=== PATIENT | male | born 1990 | race African-American/Black ===

== ENCOUNTER 2022-03-04 18:57 | Emergency (ER) | payer MEDICAID, SELFPAY ==
--- NOTE | 2022-03-04 18:59 | ED_ITS ---
HPI - Overdose General Chief Complaint: ETOH/Substance Use <Alexander Colon MD - Last Filed: 03/04/22 23:20> Stated Complaint: POLYSUB OD,LOW BS PER EMS <Alexander Colon MD - Last Filed: 03/04/22 23:20> Time Seen by Provider: 03/04/22 19:59 <Alexander Colon MD - Last Filed: 03/04/22 23:20> Source: EMS <Alexander Colon MD - Last Filed: 03/04/22 23:20> Mode of arrival: EMS <Alexander Colon MD - Last Filed: 03/04/22 23:20> Limitations: altered mental status <Alexander Colon MD - Last Filed: 03/04/22 23:20> History of Present Illness HPI Narrative: Patient found in car unresponsive, heroine and needles in the car. Fire gave 8mg Narcan nasally, initial glucose 60, patient initially not breathing. <Alexander Colon MD - Last Filed: 03/04/22 23:20> MD complaint: accidental overdose <Alexander Colon MD - Last Filed: 03/04/22 23:20> Onset (ago): minute(s) <Alexander Colon MD - Last Filed: 03/04/22 23:20> Related Data Allergies/Adverse Reactions: Allergies Allergy/AdvReac Type Severity Reaction Status Date / Time No Known Allergies Allergy Verified 03/04/22 19:01 <Alexander Colon MD - Last Filed: 03/04/22 23:20> Review of Systems Review of Systems: Yes Unobtainable due to mental status <Alexander Colon MD - Last Filed: 03/04/22 23:20> [facility] Social History Social History: Social History Use of substances other than those prescribed or required for medical reasons: Yes Advance Directives: No Advance Directives Information Provided: No <Alexander Colon MD - Last Filed: 03/04/22 23:20> Physical Exam Vital Signs: Vital Signs: Last Vital Signs Temp 98.1 F 03/05/22 01:04 Pulse 95 03/05/22 01:04 Resp 14 03/05/22 01:04 BP 102/70 03/05/22 01:04 Pulse Ox 97 03/05/22 01:04 BMI result Body Mass Index 24.4 <Alexander Colon MD - Last Filed: 03/04/22 23:20> Vital Signs: Last Vital Signs Temp 98.1 F 03/05/22 01:04 Pulse 95 03/05/22 01:04 Resp 03/05/22 01:04 BP 102/70 03/05/22 01:04 Pulse Ox 97 03/05/22 01:04 BMI result Body Mass Index 24.4 <Bere Santiago DO - Last Filed: 03/05/22 02:48> Const: Other: shaking tremulous, unresponsive, moaning <Alexander Colon MD - Last Filed: 03/04/22 23:20> Nutritional Appearance: average body habitus <Alexander Colon MD - Last Filed: 03/04/22 23:20> Limitations: altered mental status <Alexander Colon MD - Last Filed: 03/04/22 23:20> HEENT: Head: Yes normal to inspection <Alexander Colon MD - Last Filed: 03/04/22 23:20> Ears: external ears normal <Alexander Colon MD - Last Filed: 03/04/22 23:20> General nose exam: Normal external nose present <Alexander Colon MD - Last Fi led: 03/04/22 23:20> Mouth: Normal oral and palatal mucosa present and oropharynx normal <Alexander Colon MD - Last Filed: 03/04/22 23:20> Throat: Yes posterior oropharynx normal <Alexander Colon MD - Last Filed: 03/04/22 23:20> Eyes: General: appearance normal, both eyes and all related structures <Alexander Colon MD - Last Filed: 03/04/22 23:20> Neck: Other: supple <Alexander Colon MD - Last Filed: 03/04/22 23:20> Neck: Yes normal visual inspection <Alexander Colon MD - Last Filed: 03/04/22 23:20> Chest: Chest palpation & inspection: normal inspection of the chest <Alexander Colon MD - Last Filed: 03/04/22 23:20> Resp: Auscultation: clear to auscultation bilaterally <Alexander Colon MD - Last Filed: 03/04/22 23:20> Cardio: Jugular venous distension: no JVD <Alexander Colon MD - Last Filed: 03/04/22 23:20> Rate: regular rate <Alexander Colon MD - Last Filed: 03/04/22 23:20> Rhythm: regular rhythm <Alexander Colon MD - Last Filed: 03/04/22 23:20> Heart sounds: S1 normal heart sound present and S2 normal heart sound present <Alexander Colon MD - Last Filed: 03/04/22 23:20> GI: Inspection: Yes normal to inspection <Alexander Colon MD - Last Filed: 03/04/22 23:20> Palpation (GI): Soft to palpation, nontender and No hepatosplenomegaly present <Alexander Colon MD - Last Filed: 03/04/22 23:20> Auscultation: normal bowel sounds <Alexander Colon MD - Last Filed: 03/04/22 23:20> : General: Yes no CVA tenderness <Alexander Colon MD - Last Filed: 03/04/22 23:20> Back/Spine/Pelvis: Back: no CVA tenderness <Alexander Colon MD - Last Filed: 03/04/22 23:20> Skin: General skin exam: no rashes or lesions noted <Alexander Colon MD - Last Filed: 03/04/22 23:20> Neuro: Other: movement all extremities <Alexander Colno MD - Last Filed: 03/04/22 23:20> Extrem: General: Yes normal to inspection <Alexander Colon MD - Last Filed: 03/04/22 23:20> Psych: Appearance: grossly normal <Alexander Colon MD - Last Filed: 03/04/22 23:20> Course Course Course Narrative: notified by RN that patient wants to leave but his WBC is elevated he is alert and oriented x 3, GCS 15, he refuses to stay in ED. He did vomit several times, repeat chemistry and LFTs normal. He states he is leaving. Does not want SUDE evaluation at this time. Patient is AMA at this time given elevated WBC count. eloped prior to DC instructions and AMA paperwork <Bere Santiago DO - Last Filed: 03/05/22 02:48> Reevaluation(s) Reevaluation #1: vomited some coffee grounds, no bright red blood <Alexander Colon MD - Last Filed: 03/04/22 23:20> Time: 21:03 <Alexander Colon MD - Last Filed: 03/04/22 23:20> Reevaluation #2: Patient placed in physician observation at 11:16pm The indication for observation is that the patient needs more time to see if his mental status returns to baseline. He has multiple drugs on board. At this time the patient is arousable but lethargic, well nourished, lungs clear, CV RRR, abd nontender, neuro he moves all extremities but is not mentating normally. <Alexander Colon MD - Last Filed: 03/04/22 23:20> Time: 23:20 <Alexander Colon MD - Last Filed: 03/04/22 23:20> MDM - Overdose Lab Data Result diagrams: : 03/05/22 01:27 03/05/22 01:27 <Alexander Colon MD - Last Filed: 03/04/22 23:20> Labs: Lab Results 03/04/22 03/04/22 03/04/22 Range/Units 19:16 19:17 19:17 WBC 25.1 H (4.8-10.8) X10*3/uL RBC 5.32 (4.60-5.80) X10*6/uL Hgb 15.6 (14.0-18.0) g/dl Hct 48.5 (42.0-52.0) % MCV 91.2 (80.0-98.0) fL MCH 29.3 (27.0-33.0) pg MCHC 32.2 (31.0-36.0) g/dl RDW 13.2 (11.0-16.0) % Plt Count 282 (160-400) X10*3/uL MPV 9.0 L (9.4-12.4) fL Immature Gran % (Auto) 1.2 H (0.0-0.4) % Neut % (Auto) 87.2 H (45-73) % Lymph % (Auto) 6.2 L (20-40) % [place] % (Auto) 5.1 (2-11) % Eos % (Auto) 0.0 (0-4) % Baso % (Auto) 0.3 (0-2) % Lymph # (Auto) 1.6 (1.2-4.9) X10*3/uL [place] # (Auto) 1.3 H (0.1-1.2) X10*3/uL Eos # (Auto) 0.0 (0.0-0.4) X10*3/uL Baso # (Auto) 0.1 (0.0-0.2) X10*3/uL Abs Immat Gran (auto) 0.31 H (0.00-0.03) X10*3/uL Absolute Neuts (auto) 21.9 H (2.0-8.3) x10*3/uL Absolute Nucleated RBC 0.000 (0.0-0.012) X10*3/uL Nucleated RBC % (auto) 0.0 (0.0-0.2) /100WBC Smear Tech's Comments Sodium 141 (135-145) mmol/L Potassium 4.8 (3.3-5.1) mmol/L Chloride 102 (96-108) mmol/L Carbon Dioxide 23 (22-29) mmol/L Anion Gap 21 H (12-20) BUN 12 (9-16) mg/dL Creatinine 1.45 H (0.5-1.4) mg/dL Estim Creat Clear Calc 81.7 Estimated GFR 57 POC Glucose (60-115) mg/dL Random Glucose 157 H (60-115) mg/dL Calcium 9.4 (8.4-10.2) mg/dL Total Bilirubin 0.8 (0.0-1.0) mg/dL Direct Bilirubin (0.0-0.5) mg/dL AST 44 H (5-37) U/L ALT 44 H (0-40) U/L Alkaline Phosphatase 65 (39-117) U/L Total Protein 7.5 (6.5-8.0) g/dL Albumin 4.3 (3.5-5.0) g/dL Salicylates < 5.0 L (15-30) mg/dL Urine Opiates Screen (Not Detect) Urine Fentanyl Screen (Not Detect) Acetaminophen < 1 (<30) mcg/mL Ur Barbiturates Screen (Not Detect) Ur Phencyclidine Scrn (Not Detect) Ur Amphetamines Screen (Not Detect) U Benzodiazepines Scrn (Not Detect) Urine Cocaine Screen (Not Detect) U Marijuana (THC) Screen (Not Detect) Ethyl Alcohol < 10 mg/dL 03/04/22 03/04/22 03/05/22 Range/Units 19:17 20:28 01:27 WBC 23.2 H (4.8-10.8) X10*3/uL RBC 5.40 (4.60-5.80) X10*6/uL Hgb 15.7 (14.0-18.0) g/dl Hct 47.2 (42.0-52.0) % MCV 87.4 (80.0-98.0) fL MCH 29.1 (27.0-33.0) pg MCHC 33.3 (31.0-36.0) g/dl RDW 13.2 (11.0-16.0) % Plt Count 247 (160-400) X10*3/uL MPV 9.1 L (9.4-12.4) fL Immature Gran % (Auto) 0.6 H (0.0-0.4) % Neut % (Auto) 86.9 H (45-73) % Lymph % (Auto) 5.5 L (20-40) % [place] % (Auto) 6.9 (2-11) % Eos % (Auto) 0.0 (0-4) % Baso % (Auto) 0.1 (0-2) % Lymph # (Auto) 1.3 (1.2-4.9) X10*3/uL [place] # (Auto) 1.6 H (0.1-1.2) X10*3/uL Eos # (Auto) 0.0 (0.0-0.4) X10*3/uL Baso # (Auto) 0.0 (0.0-0.2) X10*3/uL Abs Immat Gran (auto) 0.14 H (0.00-0.03) X10*3/uL Absolute Neuts (auto) 20.2 H (2.0-8.3) x10*3/uL Absolute Nucleated RBC 0.000 (0.0-0.012) X10*3/uL Nucleated RBC % (auto) 0.0 (0.0-0.2) /100WBC Smear Tech's Comments VERIFIED Sodium (135-145) mmol/L Potassium (3.3-5.1) mmol/L Chloride (96-108) mmol/L Carbon Dioxide (22-29) mmol/L Anion Gap (12-20) BUN (9-16) mg/dL Creatinine (0.5-1.4) mg/dL Estim Creat Clear Calc Estimated GFR POC Glucose 108 (60-115) mg/dL Random Glucose (60-115) mg/dL Calcium (8.4-10.2) mg/dL Total Bilirubin (0.0-1.0) mg/dL Direct Bilirubin (0.0-0.5) mg/dL AST (5-37) U/L ALT (0-40) U/L Alkaline Phosphatase (39-117) U/L Total Protein (6.5-8.0) g/dL Albumin (3.5-5.0) g/dL Salicylates (15-30) mg/dL Urine Opiates Screen POSITIVE H (Not Detect) Urine Fentanyl Screen POSITIVE H (Not Detect) Acetaminophen (<30) mcg/mL Ur Barbiturates Screen Not Detected (Not Detect) Ur Phencyclidine Scrn Not Detected (Not Detect) Ur Amphetamines Screen Not Detected (Not Detect) U Benzodiazepines Scrn Not Detected (Not Detect) Urine Cocaine Screen POSITIVE H (Not Detect) U Marijuana (THC) Screen POSITIVE H (Not Detect) Ethyl Alcohol mg/dL 03/05/22 Range/Units 01:27 WBC (4.8-10.8) X10*3/uL RBC (4.60-5.80) X10*6/uL Hgb (14.0-18.0) g/dl Hct (42.0-52.0) % MCV (80.0-98.0) fL MCH (27.0-33.0) pg MCHC (31.0-36.0) g/dl RDW (11.0-16.0) % Plt Count (160-400) X10*3/uL MPV (9.4-12.4) fL Immature Gran % (Auto) (0.0-0.4) % Neut % (Auto) (45-73) % Lymph % (Auto) (20-40) % [place] % (Auto) (2-11) % Eos % (Auto) (0-4) % Baso % (Auto) (0-2) % Lymph # (Auto) (1.2-4.9) X10*3/uL [place] # (Auto) (0.1-1.2) X10*3/uL Eos # (Auto) (0.0-0.4) X10*3/uL Baso # (Auto) (0.0-0.2) X10*3/uL Abs Immat Gran (auto) (0.00-0.03) X10*3/uL Absolute Neuts (auto) (2.0-8.3) x10*3/uL Absolute Nucleated RBC (0.0-0.012) X10*3/uL Nucleated RBC % (auto) (0.0-0.2) /100WBC Smear Tech's Comments Sodium 141 (135-145) mmol/L Potassium 4.9 (3.3-5.1) mmol/L Chloride 103 (96-108) mmol/L Carbon Dioxide 26 (22-29) mmol/L Anion Gap 17 (12-20) BUN 15 (9-16) mg/dL Creatinine 1.14 (0.5-1.4) mg/dL Estim Creat Clear Calc 103.9 Estimated GFR > 60 POC Glucose (60-115) mg/dL Random Glucose 115 (60-115) mg/dL Calcium 9.5 (8.4-10.2) mg/dL Total Bilirubin 0.9 (0.0-1.0) mg/dL Direct Bilirubin 0.4 (0.0-0.5) mg/dL AST 53 H (5-37) U/L ALT 49 H (0-40) U/L Alkaline Phosphatase 57 (39-117) U/L Total Protein 7.7 (6.5-8.0) g/dL Albumin 4.5 (3.5-5.0) g/dL Salicylates (15-30) mg/dL Urine Opiates Screen (Not Detect) Urine Fentanyl Screen (Not Detect) Acetaminophen (<30) mcg/mL Ur Barbiturates Screen (Not Detect) Ur Phencyclidine Scrn (Not Detect) Ur Amphetamines Screen (Not Detect) U Benzodiazepines Scrn (Not Detect) Urine Cocaine Screen (Not Detect) U Marijuana (THC) Screen (Not Detect) Ethyl Alcohol mg/dL <Alexander Colon MD - Last Filed: 03/04/22 23:20> Lab Results 03/04/22 03/04/22 03/04/22 Range/Units 19:16 19:17 19:17 WBC 25.1 H (4.8-10.8) X10*3/uL RBC 5.32 (4.60-5.80) X10*6/uL Hgb 15.6 (14.0-18.0) g/dl Hct 48.5 (42.0-52.0) % MCV 91.2 (80.0-98.0) fL MCH 29.3 (27.0-33.0) pg MCHC 32.2 (31.0-36.0) g/dl RDW 13.2 (11.0-16.0) % Plt Count 282 (160-400) X10*3/uL MPV 9.0 L (9.4-12.4) fL Immature Gran % (Auto) 1.2 H (0.0-0.4) % Neut % (Auto) 87.2 H (45-73) % Lymph % (Auto) 6.2 L (20-40) % [place] % (Auto) 5.1 (2-11) % Eos % (Auto) 0.0 (0-4) % Baso % (Auto) 0.3 (0-2) % Lymph # (Auto) 1.6 (1.2-4.9) X10*3/uL [place] # (Auto) 1.3 H (0.1-1.2) X10*3/uL Eos # (Auto) 0.0 (0.0-0.4) X10*3/uL Baso # (Auto) 0.1 (0.0-0.2) X10*3/uL Abs Immat Gran (auto) 0.31 H (0.00-0.03) X10*3/uL Absolute Neuts (auto) 21.9 H (2.0-8.3) x10*3/uL Absolute Nucleated RBC 0.000 (0.0-0.012) X10*3/uL Nucleated RBC % (auto) 0.0 (0.0-0.2) /100WBC Smear Tech's Comments Sodium 141 (135-145) mmol/L Potassium 4.8 (3.3-5.1) mmol/L Chloride 102 (96-108) mmol/L Carbon Dioxide 23 (22-29) mmol/L Anion Gap 21 H (12-20) BUN 12 (9-16) mg/dL Creatinine 1.45 H (0.5-1.4) mg/dL Estim Creat Clear Calc 81.7 Estimated GFR 57 POC Glucose (60-115) mg/dL Random Glucose 157 H (60-115) mg/dL Calcium 9.4 (8.4-10.2) mg/dL Total Bilirubin 0.8 (0.0-1.0) mg/dL Direct Bilirubin (0.0-0.5) mg/dL AST 44 H (5-37) U/L ALT 44 H (0-40) U/L Alkaline Phosphatase 65 (39-117) U/L Total Protein 7.5 (6.5-8.0) g/dL Albumin 4.3 (3.5-5.0) g/dL Salicylates < 5.0 L (15-30) mg/dL Urine Opiates Screen (Not Detect) Urine Fentanyl Screen (Not Detect) Acetaminophen < 1 (<30) mcg/mL Ur Barbiturates Screen (Not Detect) Ur Phencyclidine Scrn (Not Detect) Ur Amphetamines Screen (Not Detect) U Benzodiazepines Scrn (Not Detect) Urine Cocaine Screen (Not Detect) U Marijuana (THC) Screen (Not Detect) Ethyl Alcohol < 10 mg/dL 03/04/22 03/04/22 03/05/22 Range/Units 19:17 20:28 01:27 WBC 23.2 H (4.8-10.8) X10*3/uL RBC 5.40 (4.60-5.80) X10*6/uL Hgb 15.7 (14.0-18.0) g/dl Hct 47.2 (42.0-52.0) % MCV 87.4 (80.0-98.0) fL MCH 29.1 (27.0-33.0) pg MCHC 33.3 (31.0-36.0) g/dl RDW 13.2 (11.0-16.0) % Plt Count 247 (160-400) X10*3/uL MPV 9.1 L (9.4-12.4) fL Immature Gran % (Auto) 0.6 H (0.0-0.4) % Neut % (Auto) 86.9 H (45-73) % Lymph % (Auto) 5.5 L (20-40) % [place] % (Auto) 6.9 (2-11) % Eos % (Auto) 0.0 (0-4) % Baso % (Auto) 0.1 (0-2) % Lymph # (Auto) 1.3 (1.2-4.9) X10*3/uL [place] # (Auto) 1.6 H (0.1-1.2) X10*3/uL Eos # (Auto) 0.0 (0.0-0.4) X10*3/uL Baso # (Auto) 0.0 (0.0-0.2) X10*3/uL Abs Immat Gran (auto) 0.14 H (0.00-0.03) X10*3/uL Absolute Neuts (auto) 20.2 H (2.0-8.3) x10*3/uL Absolute Nucleated RBC 0.000 (0.0-0.012) X10*3/uL Nucleated RBC % (auto) 0.0 (0.0-0.2) /100WBC Smear Tech's Comments VERIFIED Sodium (135-145) mmol/L Potassium (3.3-5.1) mmol/L Chloride (96-108) mmol/L Carbon Dioxide (22-29) mmol/L Anion Gap (12-20) BUN (9-16) mg/dL Creatinine (0.5-1.4) mg/dL Estim Creat Clear Calc Estimated GFR POC Glucose 108 (60-115) mg/dL Random Glucose (60-115) mg/dL Calcium (8.4-10.2) mg/dL Total Bilirubin (0.0-1.0) mg/dL Direct Bilirubin (0.0-0.5) mg/dL AST (5-37) U/L ALT (0-40) U/L Alkaline Phosphatase (39-117) U/L Total Protein (6.5-8.0) g/dL Albumin (3.5-5.0) g/dL Salicylates (15-30) mg/dL Urine Opiates Screen POSITIVE H (Not Detect) Urine Fentanyl Screen POSITIVE H (Not Detect) Acetaminophen (<30) mcg/mL Ur Barbiturates Screen Not Detected (Not Detect) Ur Phencyclidine Scrn Not Detected (Not Detect) Ur Amphetamines Screen Not Detected (Not Detect) U Benzodiazepines Scrn Not Detected (Not Detect) Urine Cocaine Screen POSITIVE H (Not Detect) U Marijuana (THC) Screen POSITIVE H (Not Detect) Ethyl Alcohol mg/dL 03/05/22 Range/Units 01:27 WBC (4.8-10.8) X10*3/uL RBC (4.60-5.80) X10*6/uL Hgb (14.0-18.0) g/dl Hct (42.0-52.0) % MCV (80.0-98.0) fL MCH (27.0-33.0) pg MCHC (31.0-36.0) g/dl RDW (11.0-16.0) % Plt Count (160-400) X10*3/uL MPV (9.4-12.4) fL Immature Gran % (Auto) (0.0-0.4) % Neut % (Auto) (45-73) % Lymph % (Auto) (20-40) % [place] % (Auto) (2-11) % Eos % (Auto) (0-4) % Baso % (Auto) (0-2) % Lymph # (Auto) (1.2-4.9) X10*3/uL [place] # (Auto) (0.1-1.2) X10*3/uL Eos # (Auto) (0.0-0.4) X10*3/uL Baso # (Auto) (0.0-0.2) X10*3/uL Abs Immat Gran (auto) (0.00-0.03) X10*3/uL Absolute Neuts (auto) (2.0-8.3) x10*3/uL Absolute Nucleated RBC (0.0-0.012) X10*3/uL Nucleated RBC % (auto) (0.0-0.2) /100WBC Smear Tech's Comments Sodium 141 (135-145) mmol/L Potassium 4.9 (3.3-5.1) mmol/L Chloride 103 (96-108) mmol/L Carbon Dioxide 26 (22-29) mmol/L Anion Gap 17 (12-20) BUN 15 (9-16) mg/dL Creatinine 1.14 (0.5-1.4) mg/dL Estim Creat Clear Calc 103.9 Estimated GFR > 60 POC Glucose (60-115) mg/dL Random Glucose 115 (60-115) mg/dL Calcium 9.5 (8.4-10.2) mg/dL Total Bilirubin 0.9 (0.0-1.0) mg/dL Direct Bilirubin 0.4 (0.0-0.5) mg/dL AST 53 H (5-37) U/L ALT 49 H (0-40) U/L Alkaline Phosphatase 57 (39-117) U/L Total Protein 7.7 (6.5-8.0) g/dL Albumin 4.5 (3.5-5.0) g/dL Salicylates (15-30) mg/dL Urine Opiates Screen (Not Detect) Urine Fentanyl Screen (Not Detect) Acetaminophen (<30) mcg/mL Ur Barbiturates Screen (Not Detect) Ur Phencyclidine Scrn (Not Detect) Ur Amphetamines Screen (Not Detect) U Benzodiazepines Scrn (Not Detect) Urine Cocaine Screen (Not Detect) U Marijuana (THC) Screen (Not Detect) Ethyl Alcohol mg/dL <Bere Santiago DO - Last Filed: 03/05/22 02:48> Discharge Plan Discharge Clinical Impression: Polysubstance abuse, Overdose, Leukocytosis <Alexander Colon MD - Last Filed: 03/04/22 23:20> Patient Disposition: Left Against Medical Advice <Alexander Colon MD - Last Filed: 03/04/22 23:20> Instructions: Adult Overdose (ED), Polysubstance Abuse (ED), Leukocytosis (ED) <Alexander Colon MD - Last Filed: 03/04/22 23:20>
[2022-03-04 19:03] VITALS: BP 112/70; BP 135/71; PULSE 120; PULSE 130; RESP 30; TEMP 36.6; O2SAT 100; BMI 24.4
--- NOTE | 2022-03-04 19:22 | PC.NURSE ---
Patient opening eyes, pulling off tele leads and PIV. NRBR in place, O2 remains at 100%. and heart rate 123 on monitor. MD at bedside.
[2022-03-04 19:29] LABS: MANUAL DIFF FLAG NO
[2022-03-04 19:32] LABS: Basophils Absolute Auto 0.1 X10*3/uL (0.0-0.2); Basophils Percent Auto 0.3 % (0-2); Hematocrit 48.5 % (42.0-52.0); Hemoglobin 15.6 g/dl (14.0-18.0); Imm Gran Abs Auto 0.31 X10*3/uL (0.00-0.03); Imm Gran Pct Auto 1.2 % (0.0-0.4); Lymphocytes Absolute Auto 1.6 X10*3/uL (1.2-4.9); Lymphocytes Percent Auto 6.2 % (20-40); Mean Corpuscular HGB Conc 32.2 g/dl (31.0-36.0); Mean Corpuscular Hemoglobin 29.3 pg (27.0-33.0); Mean Corpuscular Volume 91.2 fL (80.0-98.0); Monocytes Absolute Auto 1.3 X10*3/uL (0.1-1.2); Monocytes Percent Auto 5.1 % (2-11); Neutrophils Absolute Auto 21.9 x10*3/uL (2.0-8.3); Neutrophils Percent Auto 87.2 % (45-73); Platelet Count 282 X10*3/uL (160-400); Red Blood Count 5.32 X10*6/uL (4.60-5.80); Red Cell Distribution Width 13.2 % (11.0-16.0); SCAN SMEAR FLAG 1; White Blood Count 25.1 X10*3/uL (4.8-10.8)
[2022-03-04 19:36] VITALS: BP 142/73; PULSE 132; RESP 19; O2SAT 97
[2022-03-04 19:45] LABS: Ethanol < 10 mg/dL
[2022-03-04 19:50] LABS: Acetaminophen LAB < 1 mcg/mL (<30); Alanine Aminotransferase 44 U/L (0-40); Albumin Level 4.3 g/dL (3.5-5.0); Alkaline Phosphatase 65 U/L (39-117); Anion Gap 21 (12-20); Aspartate Amino Transferase 44 U/L (5-37); Bilirubin Total 0.8 mg/dL (0.0-1.0); Blood Urea Nitrogen 12 mg/dL (9-16); Calcium 9.4 mg/dL (8.4-10.2); Carbon Dioxide 23 mmol/L (22-29); Chloride 102 mmol/L (96-108); Creatinine Clr Calc Pharmacy 81.7; Estimated Glomerular Filt Rate 57; Glucose Random 157 mg/dL (60-115); Potassium 4.8 mmol/L (3.3-5.1); Salicylate < 5.0 mg/dL (15-30); Sodium 141 mmol/L (135-145); Total Protein 7.5 g/dL (6.5-8.0)
[2022-03-04 19:55] LABS: Amphetamine Screen Urine Not Detected (Not Detect); Barbiturates, Urine Not Detected (Not Detect); Benzodiazepines Screen Urine Not Detected (Not Detect); Cannabinoid Screen Urine POSITIVE (Not Detect); Cocaine Screen Urine POSITIVE (Not Detect); Fentanyl, urine POSITIVE (Not Detect); Opiate Screen Urine POSITIVE (Not Detect); Phencyclidine Screen Urine Not Detected (Not Detect)
[2022-03-04 20:32] LABS: Glucose, Whole Blood 108 mg/dL (60-115)
--- NOTE | 2022-03-04 20:32 | MHC.RECOVSUP ---
Reason for consult: recovery support and engagement o Current location: ED #4 o Identified substance use concern: OPIOID - Overdose <del>-</del> <del>Withdrawal</del> <del>-</del> <del>Seeking</del> <del>ATS</del> <del>(detox)</del> <del>-</del> <del>Support</del> ? Intervention: <del>o</del> <del>ATS</del> <del>bed</del> <del>search</del> <del>started/completed/in</del> <del>process</del> <del>o</del> <del>MAT</del> <del>started</del> <del>or</del> <del>to</del> <del>be</del> <del>started</del> <del>o</del> <del>Community</del> <del>resources</del> <del>provided</del> <del>o</del> <del>Harm</del> <del>reduction</del> <del>discussion</del> ? Plan: <del>o</del> <del>Referral</del> <del>to</del> <del>[facility]</del> <del>o</del> <del>Bed</del> <del>search</del> <del>in</del> <del>progress</del> <del>to</del> <del>o</del> <del>Follow</del> <del>up</del> <del>tomorrow</del> <del>o</del> <del>Patient</del> <del>awaiting</del> <del>crisis</del> <del>evaluation</del> <del>o</del> <del>Patient</del> <del>to</del> <del>follow</del> <del>up</del> <del>with</del> <del>[facility]</del> <del>after</del> <del>discharge</del> ? Additional information: I attempted to engage with pt but he was not awake and could not remain alert. pt was brought into the ED because of an OPIOID overdose. I had to make the nurse aware that pt was sideways on his bed and needed assistance with getting back on his bed. I will wait and try to engage with him again within the next hour.
[2022-03-04 20:34] VITALS: BP 108/67; PULSE 105; RESP 20; TEMP 37; O2SAT 94
--- NOTE | 2022-03-04 21:30 | PC.NURSE ---
Patient awake, responds to name. Mother at bedside.
[2022-03-04 22:00] VITALS: BP 108/72; PULSE 105; RESP 18; O2SAT 97
[2022-03-05] VITALS: BP 119/48; PULSE 94; RESP 18; O2SAT 98
[2022-03-05 01:04] VITALS: BP 102/70; PULSE 95; RESP 14; TEMP 36.7; O2SAT 97
[2022-03-05 01:40] LABS: Basophils Percent Auto 0.1 % (0-2); Hematocrit 47.2 % (42.0-52.0); Hemoglobin 15.7 g/dl (14.0-18.0); Imm Gran Abs Auto 0.14 X10*3/uL (0.00-0.03); Imm Gran Pct Auto 0.6 % (0.0-0.4); Lymphocytes Absolute Auto 1.3 X10*3/uL (1.2-4.9); Lymphocytes Percent Auto 5.5 % (20-40); MANUAL DIFF FLAG SCAN; Mean Corpuscular HGB Conc 33.3 g/dl (31.0-36.0); Mean Corpuscular Hemoglobin 29.1 pg (27.0-33.0); Mean Corpuscular Volume 87.4 fL (80.0-98.0); Mean Platelet Volume 9.1 fL (9.4-12.4); Monocytes Absolute Auto 1.6 X10*3/uL (0.1-1.2); Monocytes Percent Auto 6.9 % (2-11); Neutrophils Absolute Auto 20.2 x10*3/uL (2.0-8.3); Neutrophils Percent Auto 86.9 % (45-73); Platelet Count 247 X10*3/uL (160-400); Red Cell Distribution Width 13.2 % (11.0-16.0); SCAN SMEAR FLAG 1; White Blood Count 23.2 X10*3/uL (4.8-10.8)
[2022-03-05 01:53] LABS: SLIDE REVIEW VERIFIED
[2022-03-05 01:57] LABS: Alanine Aminotransferase 49 U/L (0-40); Albumin Level 4.5 g/dL (3.5-5.0); Alkaline Phosphatase 57 U/L (39-117); Anion Gap 17 (12-20); Aspartate Amino Transferase 53 U/L (5-37); Bilirubin Direct 0.4 mg/dL (0.0-0.5); Bilirubin Total 0.9 mg/dL (0.0-1.0); Blood Urea Nitrogen 15 mg/dL (9-16); Calcium 9.5 mg/dL (8.4-10.2); Carbon Dioxide 26 mmol/L (22-29); Chloride 103 mmol/L (96-108); Creatinine Clr Calc Pharmacy 103.9; Estimated Glomerular Filt Rate > 60; Glucose Random 115 mg/dL (60-115); Potassium 4.9 mmol/L (3.3-5.1); Sodium 141 mmol/L (135-145); Total Protein 7.7 g/dL (6.5-8.0)
--- NOTE | 2022-03-05 02:45 | PC.NURSE ---
Pt Iv removed. pt told to please stay until discharge. Pt was told provider would be in shortly. pt refused and left. Provider is aware. pt was a&o, no sob or chest pain. pt was able to walk with a steady gait. Pt was able to respond to questions appropriately.
[2022-03-05 05:21] LABS: Glucose, Whole Blood 170 mg/dL (60-115)
== END 2022-03-05 02:53 | disposition left against medical advice (07) ==
PROVIDERS: Emergency Medicine; Emergency Provider Emergency Medicine
DX: T40.1X1A Poisoning by heroin, accidental (unintentional), initial encounter (principal); T40.5X1A Poisoning by cocaine, accidental (unintentional), initial encounter; T40.711A Poisoning by cannabis, accidental (unintentional), initial encounter; R40.4 Transient alteration of awareness; F19.10 Other psychoactive substance abuse, uncomplicated; Y92.810 Car as the place of occurrence of the external cause; D72.829 Elevated white blood cell count, unspecified
CPT/HCPCS: 36415; 80048; 80053; 80076; 80143; 80179; 80307; 82077; 82947; 85025; 99284

== ENCOUNTER 2022-04-17 19:53 | Emergency (ER) | payer SELFPAY ==
--- NOTE | ~2022-04-17 | XR_ITS ---
EXAMINATION: XR CHEST CLINICAL INFORMATION: Overdose COMPARISON: None TECHNIQUE: Frontal portable view of the chest was obtained. 9:05 PM FINDINGS: No significant abnormality is noted involving the heart, lungs, mediastinum, bony thorax or soft tissues. XR/XR chest 1V IMPRESSION: Unremarkable examination.
[2022-04-17 20:02] VITALS: BP 120/83; PULSE 69; PULSE 75; RESP 12; O2SAT 100; O2SAT 99; BMI 19.2
[2022-04-17 20:14] VITALS: BP 116/82; PULSE 71; RESP 13; TEMP 36.6; O2SAT 98
--- NOTE | 2022-04-17 20:31 | ED.OVERDOSE ---
HPI - Overdose General Chief Complaint: ETOH/Substance Use Stated Complaint: OVERDOSE Source: patient and EMS Mode of arrival: EMS Limitations: no limitations History of Present Illness HPI Narrative: 32-year-old male presents via EMS for heroin overdose. Patient was found unresponsive by family members, was given 12 mg of intranasal Narcan by family and police department. Upon EMS arrival, patient was vomiting, awake alert and oriented. Upon presentation to the emergency department, patient is easily arousable, even unlabored respirations, alert oriented x4, and answering questions politely and appropriately. He states to have used only 1 bag of heroin, is declining detox services at this time, and denies suicidal and homicidal ideation. MD complaint: accidental overdose Onset (ago): hour(s) (Within the hour of arrival) Timing confirmed by: family member Context: Intentional Overdose: drug/ETOH problems Context: Accidental Overdose: wanted to get high Treatments Prior to Arrival: narcan Related Data Allergies Allergy/AdvReac Type Severity Reaction Status Date / Time No Known Allergies Allergy Verified 03/04/22 19:01 Review of Systems Review of Systems: Constitutional: No Fever, No Chills ENT/Mouth: No Ear Pain, No Hoarseness, No sore throat Eyes: No Eye Pain, No Swelling, No Redness, No Foreign Body Cardiovascular: No Chest Pain, No SOB Respiratory: No Cough, No Dyspnea Gastrointestinal: No Nausea, No Vomiting, No Diarrhea, No abdominal Pain Genitourinary: No Dysuria, No Hematuria Musculoskeletal: No joint pain, No Myalgias, No Joint Swelling Skin: No Skin lacerations, No rash Neuro: No Weakness, No Numbness, No Paresthesias, No Loss of Consciousness, No Dizziness, No Headache Psych: Positive heroin overdose, No Anxiety/Panic, No Depression Heme/Lymph: no easy bruising, no Lymphadenopathy Endocrine: No Polyuria, No Polydipsia Yes all other systems are reviewed and are negative [facility] Past Medical History Attestation statement: The following information was validated with the patient. Source: old records reviewed Social History Social History Alcohol intake: never Patient Tobacco Use Status: Current everyday Tobacco user Use of substances other than those prescribed or required for medical reasons: Refusing to respond Advance Directives: No Advance Directives Information Provided: Yes Physical Exam Vital Signs: Vital Signs: Last Vital Signs Temp 98 F 04/17/22 20:14 Pulse 78 04/17/22 22:00 Resp 13 04/17/22 22:00 BP 104/70 04/17/22 22:00 Pulse Ox 98 04/17/22 22:00 O2 Del Method 04/17/22 22:00 BMI result Body Mass Index 19.2 Appearance: Alert. Oriented X3. No acute distress. Eyes: Pupils equal, round and reactive to light. EOMI. Sclera nonicteric. ENT: Pharynx normal. Neck: Normal inspection. Neck supple. CVS: Normal heart rate and rhythm. Pulses normal. Respiratory: No respiratory distress. Lung sounds clear to auscultation all lobes. Abdomen: Soft and nontender. Skin: Skin warm and dry. Normal skin color. Normal skin turgor. Extremities: No lower extremity edema. Moves all extremities against resistance. Neuro: No motor deficit. No sensory deficit. Cranial nerves 2-12 intact. Course Course Course Narrative: 32-year-old male presents via EMS for heroin overdose. Was given 12 mg of intranasal Narcan by family members and police department. By the time EMS arrived to his residence, patient was vomiting, alert oriented x4. Patient has even unlabored respirations, answering questions politely and appropriately, appears remorseful. Patient does not have any medical complaints. O2 sat 99% on room air. Lung sounds clear to auscultation all lobes. Patient is not interested in detox at this time. Plan of care is to monitor for approximately 2 hours, chest x-ray and metabolized to freedom. 21:49 patient is alert oriented x4. Easily arousable. Even unlabored respirations. Polite and appropriate responses. Plan of care to metabolized feeding. Patient still declines detox services 23:00 alert oriented x4. Easily arousable. Continues to decline detox. Plan of care is to discharge home. Patient verbalized understanding of and agrees with care. Verbalizes understanding of signs symptoms indicating need for emergent intervention. Patient has accepted Narcan for home use. MDM - Overdose Differential Diagnosis Differential diagnosis: Likely drug overdose Medical Records Attestation: I reviewed the patient's medical records. Imaging Data Chest x-ray: Attestation: I personally reviewed and interpreted this imaging study as follows: Radiologist's impression: EXAMINATION: XR CHEST CLINICAL INFORMATION: Overdose COMPARISON: None TECHNIQUE: Frontal portable view of the chest was obtained. 9:05 PM FINDINGS: No significant abnormality is noted involving the heart, lungs, mediastinum, bony thorax or soft tissues. XR/XR chest 1V IMPRESSION: Unremarkable examination. Discharge Plan Discharge Clinical Impression: Heroin overdose Patient Disposition: Home, Self-Care Instructions: Opioid Use Disorder (ED) Additional Instructions: Please consider detox. Thank you for choosing this emergency department for evaluation. Please follow-up with primary care physician as needed. Return to the emergency department for any new, concerning, or worsening symptoms.
[2022-04-17 22:00] VITALS: BP 104/70; PULSE 78; RESP 13; O2SAT 98
[2022-04-17 23:15] VITALS: BP 106/65; PULSE 71; RESP 12; TEMP 36.6; O2SAT 95
--- NOTE | 2022-04-17 23:31 | PC.NURSE ---
Patient discharged home with intranasal narcan 4 mg, per MD order.
== END 2022-04-17 23:32 | disposition home or self-care (01) ==
PROVIDERS: Emergency Provider Emergency Medicine Emergency Medical Services
DX: T40.1X1A Poisoning by heroin, accidental (unintentional), initial encounter (principal); R40.4 Transient alteration of awareness; Y92.039 Unspecified place in apartment as the place of occurrence of the external cause; F17.200 Nicotine dependence, unspecified, uncomplicated
CPT/HCPCS: 71045; 99283; 99284

== ENCOUNTER 2022-08-02 02:43 | Emergency (ER) | payer SELFPAY ==
[2022-08-02 03:16] VITALS: BP 140/100; PULSE 106; RESP 22; TEMP 37.1; O2SAT 98; BMI 20.2
--- NOTE | 2022-08-02 04:16 | ED_ITS ---
HPI - General Adult General Chief complaint: General Medical Stated complaint: gen medical Time Seen by Provider: 08/02/22 04:01 Source: patient Mode of arrival: ambulatory History of Present Illness HPI narrative: Patient with history of substance abuse use opiates 2-3 bundles a day asking for some help does not want to go to detox used only 3 bags today feel very anxious asking for methadone or Suboxone Related Data Allergies Allergy/AdvReac Type Severity Reaction Status Date / Time No Known Allergies Allergy Verified 08/02/22 03:15 Review of Systems Review of Systems: Yes all other systems are reviewed and are negative [facility] Social History Social History Alcohol intake: never Patient Tobacco Use Status: Current everyday Tobacco user Advance Directives: No Advance Directives Information Provided: No Physical Exam ED Vital Signs: Vital Signs - 24 hr 08/02/22 03:16 08/02/22 04:27 Temperature 98.7 F Pulse Rate 106 H 102 H Respiratory Rate 22 H 18 Blood Pressure 140/100 H 105/67 Pulse Oximetry 98 96 Oxygen Delivery Method Room Air Room Air BMI result Body Mass Index 20.2 Appearance: Alert. Oriented X3. No acute distress. Anxios Eyes: PERRLA, No Nystagmus ENT: Pharynx normal. Oral Mucosa moist Neck: Normal inspection. Neck supple. CVS: Normal heart rate and rhythm. Pulses normal. Respiratory: No respiratory distress. Equal air entry bilateral, no wheezing/rales/rhonchi Abdomen: Soft and nontender. Bowel sounds are present, no mass palpable, no CVA tenderness Skin: Skin warm and dry. Normal skin color. Normal skin turgor. Extremities: No lower extremity edema. No calf tenderness Neuro: Oriented X 3. Medical Decision Making MDM Narrative Medical decision making narrative: Patient refuses inpatient detox , would like to go outpatient detox contact numbers were given to the patient Discharge Plan Discharge Clinical Impression: Opiate addiction Patient Disposition: Home, Self-Care Instructions: Narcotic Use Disorder (ED) Additional Instructions: Follow up with detox as advised Interventions: ED Discharge Assessment Last Done: 08/02/22 05:52 Discharge Date/Time: 08/02/22 05:40 Print Language: Romanian
[2022-08-02 04:27] VITALS: BP 105/67; PULSE 102; RESP 18; O2SAT 96
[2022-08-02] MEDS: LORazepam 1 MG TABLET 2 MG PO (05:10)
== END 2022-08-02 05:40 | disposition home or self-care (01) ==
PROVIDERS: Emergency Provider Internal Medicine
DX: F19.10 Other psychoactive substance abuse, uncomplicated (principal); F41.9 Anxiety disorder, unspecified; F17.200 Nicotine dependence, unspecified, uncomplicated
CPT/HCPCS: 99283